=== PATIENT | female | born 1960 | race Native Hawaiian/Other Pacific Islander ===

== ENCOUNTER 2022-11-18 17:48 | Emergency (ER) | payer OTHER ==
[~2022-11-18] VITALS: Ht 157.5 cm; Wt 130.6 kg
[2022-11-18 17:49] VITALS: BP 130/72; TEMP 97.2
[2022-11-18 18:07] LABS: PLATELET COUNT 178 K/uL (152-353)
[2022-11-18 18:21] LABS: POTASSIUM 3.6 mmol/L (3.6-5.2)
[2022-11-19] MEDS ORDERED: ELIQUIS5 MG PO (07:46)
[2022-11-19] MEDS ORDERED: CARV3.12 PO (07:47)
[2022-11-19] MEDS ORDERED: ONDA4TAB3 PO (07:48)
[2022-11-19] MEDS ORDERED: PERCOCET1 TA3 PO (07:49)
[2022-11-19] MEDS ORDERED: ACET-655 PO (07:50)
[2022-11-19] MEDS ORDERED: ACET-206 PO (07:52)
[2022-11-19] MEDS ORDERED: [UNRECOGNIZED DRUG - CODE] PO (07:53)
[2022-11-19] MEDS ORDERED: DIAZ5TAB20 PO (07:54)
[2022-11-19] MEDS ORDERED: GABA400C2 PO (07:56)
[2022-11-19] MEDS ORDERED: VITAMIN D400 UNI1 PO (07:57)
[2022-11-19] MEDS ORDERED: MIRALAX17 GM/SCOO PO (07:58)
[2022-11-19] MEDS ORDERED: KLOR-CON M2020 MEQ PO (07:59)
[2022-11-19] MEDS ORDERED: ESCITALOPRAM20 MG PO (08:00)
[2022-11-19] MEDS ORDERED: SOLI10TAB PO (08:00)
[2022-11-19] MEDS ORDERED: FURO20TA67 PO (08:01)
[2022-11-19] MEDS ORDERED: LIPITOR80 MG PO (08:02)
[2022-11-19] MEDS ORDERED: LORA10TA3 PO (08:03)
== END 2022-11-18 19:55 | disposition still patient (30) ==
LOC: ED 17:48
PROVIDERS: Emergency Medicine
DX: R46.2 Strange and inexplicable behavior (principal); Z02.79 Encounter for issue of other medical certificate
CPT/HCPCS: 80053; 85027; 87635; 93005; 99282; U0003